=== PATIENT | male | born 1975 | race African-American/Black ===

== ENCOUNTER 2017-05-29 23:30 | Inpatient (IN) | payer OTHER ==
[2017-05-29 23:35] VITALS: BMI 27.3
--- NOTE | 2017-05-30 00:19 | PDOC ---
History of Present Illness - General Chief Complaint: Pain Stated Complaint: STOMACH PAIN Time Seen by Provider: 05/30/17 00:17 - History of Present Illness Initial Comments: 05/30/17 00:57 41 year old amle with no pmhx presented the ED today due to worsening nausea vomiting and abdominal pain, fever, chills and diffuse sweating . Symptoms started May 09 with N/V/D and was seen at urgent care and treated with Metronidazole , metoclopramide and protonix , but symptoms has not been imprvingand getting worse , he is scheduled for Endoscopy with on Wednesday but the abdominal pain prompt him to come to ED. The pain is med epigastric 10/15 , local non radiating , he reports constipation since a week, has vomitted today X5 non bilious non bloody. Denies any headache , blurry vision, chest pain , palpitations , sore throat, urinary symptom, but report all body ache. 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 CMP * Amylase , Lipase * Zofran for nausea once * IV fluids 125 CC /hr NS * Acetaminophen 800 mg Iv bp once Past History - Past Medical History Allergies/Adverse Reactions: Allergies Allergy/AdvReac Type Severity Reaction Status Date / Time No Known Allergies Allergy Verified 05/29/17 23:35 Home Medications: Ambulatory Orders NK [No Known Home Medication] 05/30/17 - Suicide/Smoking/Psychosocial Hx Smoking History: Never smoked Have you smoked in the past 12 months: No Information on smoking cessation initiated: No Hx Alcohol Use: No Drug/Substance Use Hx: No Substance Use Type: Alcohol *Physical Exam - Vital Signs Last Vital Signs Temp Pulse Resp BP Pulse Ox 98.2 F 90 16 126/99 100 05/29/17 23:32 05/29/17 23:32 05/29/17 23:32 05/29/17 23:32 05/29/17 23:32 ED Treatment Course - LABORATORY CBC & Chemistry Diagram: 06/02/17 06:40 06/02/17 06:40 *DC/Admit/Observation/Transfer Diagnosis at time of Disposition: Abdominal pain - Referrals - Patient Instructions - Post Discharge Activity
[2017-05-30] MEDS ORDERED: ACETAMINOPHEN 1000 MG/100 ML VIAL (NON FORMULARY) IVPB ONE (00:52)
[2017-05-30] MEDS ORDERED: ONDANSETRON 4 MG/2 ML VIAL IVPUSH ONE (00:53)
[2017-05-30] MEDS ORDERED: SODIUM CHLORIDE 1,000 ML IV SCH (01:00)
[2017-05-30] MEDS ORDERED: ONDANSETRON 4 MG/2 ML VIAL ONE ×2 (01:04→06:57)
[2017-05-30] MEDS ORDERED: ACETAMINOPHEN INJECTION 100 ML IVPB ONE (01:04)
[2017-05-30 01:51] LABS: BASO % 0.3 % (0-2.0); EOS % 0.1 % (0-4.5); HEMATOCRIT 51.1 % (35.4-49); HEMOGLOBIN 17.4 GM/dL (11.7-16.9); LYMPH % 17.4 % (8-40); MCH 30.4 pg (25.7-33.7); MCHC 34.1 g/dl (32.0-35.9); MEAN CELL VOLUME 89.1 fl (80-96); MEAN PLT VOLUME 8.5 fl (7.5-11.1); MONO % 6.4 % (3.8-10.2); NEUT % 75.8 % (42.8-82.8); PLATELET COUNT 284 K/MM3 (134-434); RBC 5.73 M/mm3 (4.00-5.60); RDW 13.1 % (11.9-15.9); WHITE BLOOD COUNT 6.8 K/mm3 (4.0-10.0)
--- NOTE | 2017-05-30 02:01 | PDOC ---
Attending Attestation - Resident Resident Name: Reid Sotelo - ED Attending Attestation I have performed the following: I have examined & evaluated the patient, The case was reviewed & discussed with the resident, I agree w/resident's findings & plan, Exceptions are as noted - HPI HPI: 05/30/17 02:00 The patient is a 41 year old male with no significant past medical history who presents to the ED complainining of several weeks of progressively worsening epigastric pain with nausea and vomiting. The patient states he was evaluated at an Urgent Care center for the same complaint a few weeks ago. He states he was treated with Metronidazole, Metoclopramide, and Protonix without improvement. Today, his epigastric pain became signficantly worse after taking the flagyl. He also reports associated chills and constipation. He reports multiple episodes of vomiting that are nonbloody and nonbilious. No chest pain or SOB. No sick contacts or recent travel. He is scheduled for endoscopy with Dr. Ryder (GI) on Wednesday. - Physicial Exam PE: 05/30/17 02:01 "GENERAL: Awake, alert, and fully oriented, in no acute distress HEAD: No signs of trauma EYES: PERRLA, EOMI, sclera anicteric, conjunctiva clear ENT: Auricles normal inspection, hearing grossly normal, nares patent, oropharynx clear without exudates. Moist mucosa NECK: Nontender, no stepoffs, Normal ROM, supple, no lymphadenopathy, JVD, or masses LUNGS: Breath sounds equal, clear to auscultation bilaterally. No wheezes, and no crackles HEART: Regular rate and rhythm, normal S1 and S2, no murmurs, rubs or gallops ABDOMEN: +epigastric TTP, No guarding, no rebound. No masses EXTREMITIES: Normal range of motion, no edema. No clubbing or cyanosis. No cords, erythema, or tenderness NEUROLOGICAL: Cranial nerves II through XII intact. 5/5 strength and sensation in all extremities, Normal speech, normal gait, normal cerebellar function SKIN: Warm, Dry, normal turgor, no rashes or lesions noted. " - Medical Decision Making 05/30/17 02:01 41 M with epigastric pain + N/V. Possible pancreatitis vs gastritis vs PUD. Less likely cholecystitis as pt with negative abel's. - Labs, lipase - IVF, GI cocktail - Reassess 05/30/17 04:56 Labs with mildly elevated lipase. Pt reassessed - continues to have inability to tolerate PO and refractory pain. Will obtain RUQ US Admit for further work up.
[2017-05-30] MEDS ORDERED: morphine CARPU-JECT 4 MG/1 ML DISP.SYRIN IVPUSH ONE (02:30)
[2017-05-30] MEDS ORDERED: morphine SULFATE 4 MG/ML VIAL ONE (02:34)
[2017-05-30] MEDS ORDERED: SODIUM CHLORIDE 1,000 ML IV STA ×2 (02:35→03:56)
[2017-05-30 03:20] LABS: URINE APPEARANCE CLEAR; URINE BILIRUBIN NEGATIVE (<2.0 mg/dL); URINE BLOOD NEGATIVE (NEGATIVE); URINE COLOR AMBER; URINE GLUCOSE (UA) NEGATIVE (NEGATIVE); URINE KETONE 2+ (NEGATIVE); URINE LEUK ESTERASE NEGATIVE (NEGATIVE); URINE NITRITE NEGATIVE (NEGATIVE)
[2017-05-30 03:36] LABS: URINE PROTEIN 1+ (NEGATIVE)
[2017-05-30 03:38] LABS: URINE HYALINE CAST 2 /lpf; URINE MUCUS MANY
[2017-05-30 03:50] LABS: BLOOD UREA NITROGEN 11 mg/dL (7-18); CREATININE 1.2 mg/dL (0.7-1.3); GLUCOSE,RANDOM 111 mg/dL (74-106)
[2017-05-30 03:54] LABS: POTASSIUM 4.3 mmol/L (3.5-5.1); SODIUM 137 mmol/L (136-145)
[2017-05-30 03:55] LABS: ANION GAP 9 (8-16); CALCIUM 9.7 mg/dL (8.5-10.1); CHLORIDE 100 mmol/L (98-107); CO2 28 mmol/L (21-32); LIPASE 422 U/L (73-393)
[2017-05-30 03:56] LABS: ALBUMIN 4.1 g/dl (3.4-5.0); BILIRUBIN,TOTAL 1.3 mg/dL (0.2-1.0); SGOT/AST 18 U/L (15-37); SGPT/ALT 18 U/L (12-78); TOT PROT 7.4 g/dl (6.4-8.2)
[2017-05-30 03:57] LABS: ALK PHOS 48 U/L (45-117)
[2017-05-30] MEDS ORDERED: MAG HYDROX/AL HYDROX/SIMETH 30 ML UNIT-DOSE CUP PO ONE (04:03)
[2017-05-30] MEDS ORDERED: FAMOTIDINE 20 MG/50 ML IVPB 20 MG/50 ML MG IVPB ONE ×3 (04:04→09:00)
[2017-05-30] MEDS ORDERED: MAG HYDROX/AL HYDROX/SIMETH 30 ML UNIT-DOSE CUP ONE (04:05)
[2017-05-30] MEDS ORDERED: ONDANSETRON 4 MG/2 ML VIAL IVPUSH PRN (06:01)
[2017-05-30] MEDS ORDERED: FAMOTIDINE IV 20 MG/12 ML VIAL IVPUSH SCH (06:05)
--- NOTE | 2017-05-30 06:08 | PN ---
Teaching Attending Note Name of Resident: Tim Cameoj ATTENDING PHYSICIAN STATEMENT I saw and evaluated the patient. I reviewed the resident's note and discussed the case with the resident. I agree with the resident's findings and plan as documented. SUBJECTIVE: This is a 41 year old male with no significant history who comes the ED complaining of epigastric pain associated with nausea, vomiting, early satiety, and weight loss. He has had symptoms for about 3 weeks. He denies hematemesis. His bowel movements have become less frequent but he denies melena and rectal bleeding. He does not smoke, denies NSAID use, history of gallstones , recent alcohol use. He has seen Dr. Ryder and an endoscopy was scheduled for 05/31. He got relief in the ED after morphine and Pepcid. OBJECTIVE: Vital Signs Period Temp Pulse Resp BP Sys/Park Pulse Ox Last 24 Hr 98.2 F 90 16 126/99 100 HEART: S1S2, RRR LUNGS: Clear ABDOMEN: Soft, non-distended, (+) epigastric tenderness, normal BS EXTREMITIES: No edema Laboratory Tests 05/30/17 05/30/17 05/30/17 01:33 01:33 02:19 WBC 6.8 RBC 5.73 H Hgb 17.4 H Hct 51.1 H MCV 89.1 MCH 30.4 MCHC 34.1 RDW 13.1 Plt Count 284 MPV 8.5 Neutrophils % 75.8 Lymphocytes % 17.4 Monocytes % 6.4 Eosinophils % 0.1 Basophils % 0.3 Sodium 137 Potassium 4.3 Chloride 100 Carbon Dioxide 28 Anion Gap 9 BUN 11 Creatinine 1.2 Creat Clearance w eGFR > 60 Random Glucose 111 H Calcium 9.7 Total Bilirubin 1.3 H AST 18 ALT 18 Alkaline Phosphatase 48 Total Protein 7.4 Albumin 4.1 Lipase 422 H Urine Color Nina Urine Appearance Clear Urine pH 6.0 Ur Specific [place] 1.035 Urine Protein 1+ H Urine Glucose (UA) Negative Urine Ketones 2+ H Urine Blood Negative Urine Nitrite Negative Urine Bilirubin Negative Urine Urobilinogen 2.0 Ur Leukocyte Esterase Negative Urine WBC (Auto) 1 Urine RBC (Auto) 2 Hyaline Casts 2 Urine Mucus Many Home Medications Medication Instructions Recorded NK [No Known Home Medication] 05/30/17 ASSESSMENT AND PLAN: This is a 41 year old male with no significant history who presented the ED with epigastric abdominal pain associated with nausea, vomiting, early satiety, and weight loss. 1. Epigastric abdominal pain - Lipase is 422 - doubt pancreatitis, presentation more consistent with PUD - Abdominal US ordered - Start IV Protonix - Morphine as needed for pain - Zofran as needed for nausea - IV fluid - GI consult for EGD
[2017-05-30] MEDS ORDERED: FAMOTIDINE 20 MG/50 ML IVPB 20 MG/50 ML MG IVPB SCH (06:30)
--- NOTE | 2017-05-30 07:06 | HP ---
CHIEF COMPLAINT: abdominal pain PCP: HISTORY OF PRESENT ILLNESS: The patient is a 41 yo m w/ no PMH who comes into the ED c/o a 1 month hx of epigastric pain with nausea and vomiting. The patient first began having epigastric discomfort around 3/4. He described it as a burning, nonradiating pain centered in the epigastrium. over the course of the month, the pain got progressively worse and became associated with nausea, vomiting, sweating, fevers and chills. The patient received Protonix, flagyl and reglan from an urgent care center. After he started taking these medications, his pain worsened and he was not able to keep any solid food down. When the pain got particularly worse during the past 2 days, he decided to come to the ED. Over this month, the patient endorses a 20 lb weight loss which he attributes to decreased appetite and increased pain while eating. He is scheduled for and EGD w/ Dr. Lima on Wednesday. Patient denies chest pain, shortness of breath. ER course was notable for: (1)Lipase 422 (2) (3) Recent Travel: none PAST MEDICAL HISTORY: none PAST SURGICAL HISTORY: none Social History: Smoking: denies Alcohol: denies Drugs: denies Family History: non-contributory Allergies No Known Allergies Allergy (Verified 05/29/17 23:35) HOME MEDICATIONS: Home Medications Medication Instructions Recorded NK [No Known Home Medication] 05/30/17 REVIEW OF SYSTEMS CONSTITUTIONAL: Absent: generalized weakness, malaise, loss of appetite, weight change HEENT: Absent: rhinorrhea, nasal congestion, throat pain, throat swelling, difficulty swallowing, mouth swelling, ear pain, eye pain, visual changes CARDIOVASCULAR: Absent: chest pain, syncope, palpitations, irregular heart rate, lightheadedness , peripheral edema RESPIRATORY: Absent: cough, shortness of breath, dyspnea with exertion, orthopnea, wheezing, stridor, hemoptysis GASTROINTESTINAL: Absent: melena, hematochezia GENITOURINARY: Absent: dysuria, frequency, urgency, hesitancy, hematuria, flank pain, genital pain MUSCULOSKELETAL: Absent: myalgia, arthralgia, joint swelling, back pain, neck pain SKIN: Absent: rash, itching, pallor HEMATOLOGIC/IMMUNOLOGIC: Absent: easy bleeding, easy bruising, lymphadenopathy, frequent infections ENDOCRINE: Absent: unexplained weight gain, unexplained weight loss, heat intolerance, cold intolerance NEUROLOGIC: Absent: headache, focal weakness or paresthesias, dizziness, unsteady gait, seizure, mental status changes, bladder or bowel incontinence PSYCHIATRIC: Absent: anxiety, depression, suicidal or homicidal ideation, hallucinations. PHYSICAL EXAMINATION Vital Signs - 24 hr 05/29/17 23:32 Temperature 98.2 F Pulse Rate 90 Respiratory 16 Rate Blood Pressure 126/99 O2 Sat by Pulse 100 Oximetry (%) GENERAL: Awake, alert, and fully oriented, in no acute distress. HEAD: Normal with no signs of trauma. NECK: Normal range of motion, supple without lymphadenopathy, JVD, or masses. LUNGS: Breath sounds equal, clear to auscultation bilaterally. No wheezes, and no crackles. No accessory muscle use. HEART: Regular rate and rhythm, normal S1 and S2 without murmur, rub or gallop. ABDOMEN: Soft, not distended, normoactive bowel sounds, no guarding, no rebound , no masses. There is tenderness to palpation in the epigastrium. The stomach is distended and can be palpated. LOWER EXTREMITIES: 2+ pulses, warm, well-perfused. No calf tenderness. No peripheral edema. NEUROLOGICAL: Cranial nerves II-X intact. Normal speech. Normal gait. PSYCHIATRIC: Cooperative. Good eye contact. Appropriate mood and affect. SKIN: Warm, dry, normal turgor, no rashes or lesions noted, normal capillary refill. Laboratory Results - last 24 hr 05/30/17 05/30/17 05/30/17 01:33 01:33 02:19 WBC 6.8 RBC 5.73 H Hgb 17.4 H Hct 51.1 H MCV 89.1 MCH 30.4 MCHC 34.1 RDW 13.1 Plt Count 284 MPV 8.5 Neutrophils % 75.8 Lymphocytes % 17.4 Monocytes % 6.4 Eosinophils % 0.1 Basophils % 0.3 Sodium 137 Potassium 4.3 Chloride 100 Carbon Dioxide 28 Anion Gap 9 BUN 11 Creatinine 1.2 Creat Clearance w eGFR > 60 Random Glucose 111 H Calcium 9.7 Total Bilirubin 1.3 H AST 18 ALT 18 Alkaline Phosphatase 48 Total Protein 7.4 Albumin 4.1 Lipase 422 H Urine Color Nina Urine Appearance Clear Urine pH 6.0 Ur Specific [place] 1.035 Urine Protein 1+ H Urine Glucose (UA) Negative Urine Ketones 2+ H Urine Blood Negative Urine Nitrite Negative Urine Bilirubin Negative Urine Urobilinogen 2.0 Ur Leukocyte Esterase Negative Urine WBC (Auto) 1 Urine RBC (Auto) 2 Hyaline Casts 2 Urine Mucus Many ASSESSMENT/PLAN: The patient is a 41 yo m w/ no PMH who is being admitted for management of dyspepsia #Dyspepsia likely 2/2 PUD -Protonix 40 IV daily -Famotidine 20mg IV BID -NPO -GI consult w/ Dr. Lima -Pain control #FEN -no fluids indicated -lytes WNL -NPO #prophy -early ambulation #Dispo -admit for observation. Visit type - Emergency Visit Emergency Visit: Yes ED Registration Date: 05/30/17 Care time: The patient presented to the Emergency Department on the above date and was hospitalized for further evaluation of their emergent condition. - New Patient This patient is new to me today: Yes Date on this admission: 05/30/17 - Critical Care Critical Care patient: No Hospitalist Screening - Colonoscopy Questionnaire Colonoscopy Questionnaire: Colonoscopy Questionnaire - Patient: 50 - 75 years old and never had a screening colonoscopy: No History of colon or rectal polyps, or CA: Unknown History of IBD, Crohn's disease or UC: Unknown History of abdominal radiation therapy as a child: Unknown - Relative: 1 with colon or rectal CA, or polyps at age 60 or younger: Unknown Colon or rectal CA diagnosed at age 45 or younger: Unknown Multiple relatives with colon or rectal CA: Unknown - Outcome: Screening Result: Negative Screen
[2017-05-30] MEDS ORDERED: PANTOPRAZOLE SODIUM 40 MG VIAL ONE (09:00)
[2017-05-30] MEDS: PANTOPRAZOLE SODIUM 40 MG VIAL IVPUSH SCH (09:07)
[2017-05-30] MEDS ORDERED: oxyCODONE HCL 5 MG TABLET PO ONE ×2 (13:23→19:15)
--- NOTE | 2017-05-30 13:38 | PN ---
Progress Note (short form) - Note Progress Note: Subjective: conto thave pain in epigastric area. constant , burping, uncomfortable, no N/V now , but vomited every time he ate at home . pain was intermittend x 3 weeks , but or past 4 days it became constant . pain in provoked by food intake. feels full with early satiety Objective: Vital Signs: Last Vital Signs Temp Pulse Resp BP Pulse Ox 98 F 79 18 145/77 100 05/30/17 13:05 05/30/17 13:05 05/30/17 13:05 05/30/17 13:05 05/30/17 13:05 Laboratory Results - last 24 hr 05/30/17 05/30/17 05/30/17 01:33 01:33 02:19 WBC 6.8 RBC 5.73 H Hgb 17.4 H Hct 51.1 H MCV 89.1 MCH 30.4 MCHC 34.1 RDW 13.1 Plt Count 284 MPV 8.5 Neutrophils % 75.8 Lymphocytes % 17.4 Monocytes % 6.4 Eosinophils % 0.1 Basophils % 0.3 Sodium 137 Potassium 4.3 Chloride 100 Carbon Dioxide 28 Anion Gap 9 BUN 11 Creatinine 1.2 Creat Clearance w eGFR > 60 Random Glucose 111 H Calcium 9.7 Total Bilirubin 1.3 H AST 18 ALT 18 Alkaline Phosphatase 48 Total Protein 7.4 Albumin 4.1 Lipase 422 H Urine Color Nina Urine Appearance Clear Urine pH 6.0 Ur Specific [place] 1.035 Urine Protein 1+ H Urine Glucose (UA) Negative Urine Ketones 2+ H Urine Blood Negative Urine Nitrite Negative Urine Bilirubin Negative Urine Urobilinogen 2.0 Ur Leukocyte Esterase Negative Urine WBC (Auto) 1 Urine RBC (Auto) 2 Hyaline Casts 2 Urine Mucus Many Physical Exam: NAD MMM, no facial droop. CV: RRR, no MRG Lungs: CTAB Abd: soft, No TTP in epigastric area , tenderness in RLQ with no rebound tenderness or guarding. nl BS . ND . Ext : no edema Assessment/Plan: 41 y/o man who presented with 1 month h/o of epigastric pain, which became constant x 3 dayas prior to presentation . 1- Epigastric pain, description of pain location, triggered by food intake, fullness, early satiety, and abd exam , indicates the possibility of peptic ulcer or gastritis clinically he does not have acute pancreatitis although his lipase is a little elevated. - give protonix BID - seems to be heme concentrated , will cont IVF - give carafate QID - avoid NSAIDS - one time dose of oxycodone - GI consult for EGD. - check HP stool AG - if EGD neg, will check CT of abd /p - repeat CBC 2- Elevated bili. unclear etiology. US nL . will repeat HLOC due to volume depletion, need for IVF and pain control and possible need for EGD Visit type - Emergency Visit Emergency Visit: Yes ED Registration Date: 05/30/17 Care time: The patient presented to the Emergency Department on the above date and was hospitalized for further evaluation of their emergent condition. - New Patient This patient is new to me today: Yes Date on this admission: 05/30/17 - Critical Care Critical Care patient: No
[2017-05-30] MEDS ORDERED: oxyCODONE HCL 5 MG TABLET ONE (14:00)
[2017-05-30] MEDS: SODIUM CHLORIDE 1,000 ML IV SCH (14:01)
[2017-05-30] MEDS: SUCRALFATE 1 GM/10 ML UNIT DOSE CUPS PO SCH ×3 (14:30→22:07)
[2017-05-30 15:19] LABS: HEMOGLOBIN 14.2 GM/dL (11.7-16.9); MCH 30.2 pg (25.7-33.7); MCHC 33.9 g/dl (32.0-35.9); MEAN CELL VOLUME 89.1 fl (80-96); MEAN PLT VOLUME 8.4 fl (7.5-11.1); PLATELET COUNT 242 K/MM3 (134-434); RBC 4.71 M/mm3 (4.00-5.60); WHITE BLOOD COUNT 6.2 K/mm3 (4.0-10.0)
[2017-05-30 15:33] LABS: ALBUMIN 3.6 g/dl (3.4-5.0); BILIRUBIN,DIRECT 0.3 mg/dL (0.0-0.2); BILIRUBIN,TOTAL 1.1 mg/dL (0.2-1.0); TOT PROT 6.4 g/dl (6.4-8.2)
[2017-05-30] MEDS ORDERED: traMADol HCL 50 MG TABLET PO ONE (19:30)
[2017-05-30] MEDS ORDERED: morphine SULFATE 4 MG/ML VIAL IVPUSH ONE (19:54)
--- NOTE | 2017-05-30 21:30 | EKG ---
Test Reason : Blood Pressure : / mmHG Vent. Rate : 073 BPM Atrial Rate : 073 BPM P-R Int : 168 ms QRS Dur : 086 ms QT Int : 378 ms P-R-T Axes : 057 090 049 degrees QTc Int : 416 ms NORMAL SINUS RHYTHM RIGHTWARD AXIS BORDERLINE ECG NO PREVIOUS ECGS AVAILABLE Confirmed by DENNY MAYES MD ([id number]) on 05/30/2017 9:30:03 PM Referred By: Confirmed By:DENNY MAYES MD
[2017-05-31] MEDS ORDERED: morphine SULFATE 4 MG/ML VIAL IVPUSH ONE ×2 (00:48→01:15)
[2017-05-31] MEDS: SODIUM CHLORIDE 1,000 ML IV SCH ×3 (01:21→13:48)
[2017-05-31] MEDS ORDERED: ACETAMINOPHEN 1000 MG/100 ML VIAL (NON FORMULARY) IVPB ONE ×2 (04:18→14:45)
[2017-05-31 08:00] LABS: HEMATOCRIT 41.9 % (35.4-49); HEMOGLOBIN 14.1 GM/dL (11.7-16.9); MCH 29.8 pg (25.7-33.7); MCHC 33.6 g/dl (32.0-35.9); MEAN CELL VOLUME 88.6 fl (80-96); MEAN PLT VOLUME 8.1 fl (7.5-11.1); PLATELET COUNT 238 K/MM3 (134-434); RBC 4.73 M/mm3 (4.00-5.60); RDW 12.8 % (11.9-15.9); WHITE BLOOD COUNT 7.8 K/mm3 (4.0-10.0)
[2017-05-31 08:15] LABS: ALBUMIN 3.3 g/dl (3.4-5.0); ALK PHOS 35 U/L (45-117); ANION GAP 11 (8-16); BILIRUBIN,DIRECT 0.3 mg/dL (0.0-0.2); BILIRUBIN,TOTAL 1.1 mg/dL (0.2-1.0); BLOOD UREA NITROGEN 11 mg/dL (7-18); CALCIUM 8.3 mg/dL (8.5-10.1); CHLORIDE 105 mmol/L (98-107); CO2 23 mmol/L (21-32); GLUCOSE,RANDOM 102 mg/dL (74-106); POTASSIUM 4.1 mmol/L (3.5-5.1); SGOT/AST 12 U/L (15-37); SGPT/ALT 17 U/L (12-78); SODIUM 139 mmol/L (136-145); TOT PROT 5.7 g/dl (6.4-8.2)
[2017-05-31] MEDS: SUCRALFATE 1 GM/10 ML UNIT DOSE CUPS PO SCH ×2 (08:26→11:09)
[2017-05-31] MEDS: PANTOPRAZOLE SODIUM 40 MG VIAL IVPUSH SCH (11:08)
--- NOTE | 2017-05-31 11:50 | CONSULT ---
- Consultation REQUESTING PROVIDER: Delvis LOPEZ CONSULT REQUEST: We have been asked to surgically evaluate this patient for abdominal pain PCP:Landon Edmondson HISTORY OF PRESENT ILLNESS:41 y/o A/A/male w/unexplained crampy abdominal pain w / nausea and vomiing since 05/09/17; he has had # evaluations at [facility] and w/ GI w/o an explanation for his abdominal pain; he was to have EGD today h/e came to the ER b/o nausea and vomiting and abdominal pain; w/u was done; he has early satiety and bloating w/ scant bowel movements and passage of flatus; NOC; no GI/ c/o o/w. PMHx: none PSHx: none Home Medications Medication Instructions Recorded NK [No Known Home Medication] 05/30/17 Allergies Allergy/AdvReac Type Severity Reaction Status Date / Time No Known Allergies Allergy Verified 05/29/17 23:35 REVIEW OF SYSTEMS: CONSTITUTIONAL: Absent: fever, chills, diaphoresis, generalized weakness, malaise, loss of appetite, weight change CARDIOVASCULAR: Absent: chest pain, syncope, palpitations, irregular heart rate, lightheadedness , peripheral edema RESPIRATORY: Absent: cough, shortness of breath, dyspnea with exertion, wheezing, stridor, hemoptysis GASTROINTESTINAL: Absent: abdominal pain, abdominal distension, nausea, vomiting, diarrhea, constipation, melena, hematochezia GENITOURINARY: Absent: dysuria, frequency, urgency, hesitancy, hematuria, flank pain, genital pain MUSCULOSKELETAL: Absent: myalgia, arthralgia, joint swelling, back pain, neck pain SKIN: Absent: rash, itching, pallor HEMATOLOGIC/IMMUNOLOGIC: Absent: easy bleeding, easy bruising, lymphadenopathy NEUROLOGIC: Absent: headache, focal weakness, paresthesias, dizziness, unsteady gait, seizure, mental status changes, bladder or bowel incontinence PSYCHIATRIC: Absent: anxiety, depression, suicidal or homicidal ideation, hallucinations. PHYSICAL EXAM: GENERAL: Awake, alert, and fully oriented, in no acute distress. HEAD: Normal with no signs of trauma. EYES: PERRL, sclera anicteric, conjunctiva clear. NECK: Normal ROM, supple without lymphadenopathy, JVD, or masses. ABDOMEN: Soft, nontender, slightly distended, normoactive bowel sounds, no guarding, no rebound, no masses. No organomegaly. No scars; no hernias. MUSCULOSKELETAL: Normal ROM at all joints. No bony deformities or tenderness. No CVA tenderness. UPPER EXTREMITIES: 2+ pulses, warm, well-perfused. No cyanosis. Cap refill <2 seconds. No peripheral edema. LOWER EXTREMITIES: 2+ pulses, warm, well-perfused. No calf tenderness. No peripheral edema. NEUROLOGICAL: Normal speech, gait not observed. PSYCH: Cooperative. Good eye contact. Appropriate mood and affect. SKIN: Warm, dry, normal turgor, no rashes or lesions noted. Vital Signs Temperature 98.9 F 05/31/17 05:35 Pulse Rate 78 05/31/17 05:35 Respiratory Rate 21 05/31/17 05:35 Blood Pressure 140/90 05/31/17 05:35 O2 Sat by Pulse Oximetry (%) 99 05/30/17 22:00 Lab Results WBC 7.8 K/mm3 (4.0-10.0) 05/31/17 06:50 RBC 4.73 M/mm3 (4.00-5.60) 05/31/17 06:50 Hgb 14.1 GM/dL (11.7-16.9) 05/31/17 06:50 Hct 41.9 % (35.4-49) 05/31/17 06:50 MCV 88.6 fl (80-96) 05/31/17 06:50 MCHC 33.6 g/dl (32.0-35.9) 05/31/17 06:50 RDW 12.8 % (11.9-15.9) 05/31/17 06:50 Plt Count 238 K/MM3 (134-434) 05/31/17 06:50 Sodium 139 mmol/L (136-145) 05/31/17 06:50 Potassium 4.1 mmol/L (3.5-5.1) 05/31/17 06:50 Chloride 105 mmol/L (98-107) 05/31/17 06:50 Carbon Dioxide 23 mmol/L (21-32) 05/31/17 06:50 Anion Gap 11 (8-16) 05/31/17 06:50 BUN 11 mg/dL (7-18) 05/31/17 06:50 Creatinine 1.0 mg/dL (0.7-1.3) 05/31/17 06:50 Random Glucose 102 mg/dL (74-106) 05/31/17 06:50 Calcium 8.3 mg/dL (8.5-10.1) L 05/31/17 06:50 CT scan a/p reviewed and d/w Dr. Jeramy Justice and Imaging [facility] report reviewed as well. IMP: SBO due to probable intussusception in a virgin abdomen. PLAN: D/E patient need for ex-lap and possible small bowel resection; r/b/t/a/' s to surgery d/w him and informed consent obtained. Samy Long MD FACS Visit type - Case Type Case Type: ED Admission - Emergency Emergency Visit: Yes ED Registration Date: 05/30/17 Care time: The patient presented to the Emergency Department on the above date and was hospitalized for further evaluation of their emergent condition. - New patient This patient is new to me today: Yes Date on this admission: 05/31/17 - Critical Care Critical Care patient: No
[2017-05-31 12:16] LABS: INR 1.27 (0.82-1.09); PROTHROMBIN TIME (PATIENT) 14.3 SEC (9.98-11.88)
--- NOTE | 2017-05-31 12:46 | PN ---
Teaching Attending Note Name of Resident: Tim Camejo ATTENDING PHYSICIAN STATEMENT I saw and evaluated the patient. I reviewed the resident's note and discussed the case with the resident. I agree with the resident's findings and plan as documented. SUBJECTIVE: No fever or chills. Abd pain is better today. OBJECTIVE: NAD MMM, no facial droop. CV: RRR, no MRG Lungs: CTAB Abd: soft,tender in LLQ and suprapubic area. no rebound tenderness or guarding. nl BS . ND . Ext : no edema Assessment/Plan: 41 y/o man who presented with 1 month h/o of epigastric pain, which became constant x 3 dayas prior to presentation . 1- ABd pain: due to SBO and possible intussusception. ? small bowel mass. possible ischemia given elevated lactate - appreciate surgical help. for exploration and possible Small bowel resection - cont IVF - pain mgt with IV agents after sx - d/w with pt possibility of mass/lymphoma as a cause. - dc carafate . 2- volume depletion : cont IVF. HLOC
[2017-05-31] MEDS ORDERED: ACETAMINOPHEN 1000 MG/100 ML VIAL (NON FORMULARY) IVPB PRN (14:00)
[2017-05-31] MEDS ORDERED: morphine SULFATE 4 MG/ML VIAL IVPUSH PRN (14:13)
--- NOTE | 2017-05-31 15:44 | CON.GI ---
Consult Consult Specialty:: GI Reason for Consultation:: Abdominal pain N/V - History of Present Illness History of Present Illness: patient consulted just prior surgery was seen in our office on 05/21/2017 for epigastric pain associated with nausea, vomiting, early satiety and 8lbs weight loss, suspected underlined bacterial overgrowth 2/2 abdominal cramping, was scheduled for EGD for further evaluation to R/O PUD, but he was presented to Ed with progressively worsening abdominal pain, N/V, abdomen/Pelvis CTA revealed SBO and patient pending surgery. - History Source History Provided By: Patient, Medical Record - Alcohol/Substance Use Hx Alcohol Use: No - Smoking History Smoking history: Never smoked Have you smoked in the past 12 months: No Home Medications - Allergies Allergies/Adverse Reactions: Allergies Allergy/AdvReac Type Severity Reaction Status Date / Time No Known Allergies Allergy Verified 05/29/17 23:35 - Home Medications Home Medications: Ambulatory Orders NK [No Known Home Medication] 05/30/17 Physical Exam-GI Vital Signs: Vital Signs Temperature 98.5 F 05/31/17 14:58 Pulse Rate 71 05/31/17 14:58 Respiratory Rate 20 05/31/17 14:58 Blood Pressure 122/65 05/31/17 14:58 O2 Sat by Pulse Oximetry (%) 99 05/31/17 08:00 Constitutional: Yes: Well Nourished, No Distress, Calm Eyes: Yes: Conjunctiva Clear HENT: Yes: Atraumatic Cardiovascular: Yes: Regular Rate and Rhythm Respiratory: Yes: Regular, CTA Bilaterally ...Palpate: Yes: Soft, Tenderness, Tenderness, Epigastium (mild). No: Firm/ Rigid, Guarding, Tenderness, Rebound Labs: CBC, BMP 05/31/17 06:50 05/31/17 06:50 INR, PTT INR 1.27 (0.82-1.09) H 05/31/17 11:43 Problem List - Problems (1) Small bowel intussusception Assessment/Plan: SBO Recommendation: >will follow up post operatively Code(s): K56.1 - INTUSSUSCEPTION
[2017-05-31] MEDS ORDERED: MIDAZOLAM HCL 2 MG/2 ML SINGLE DOSE VIAL ONE (16:00)
[2017-05-31] MEDS ORDERED: DEXAMETHASONE SOD PHOSPHATE 4 MG/1 ML VIAL ONE (16:02)
[2017-05-31] MEDS ORDERED: LIDOCAINE HCL/PF 2% SDV 5ML VIAL ONE (16:02)
[2017-05-31] MEDS ORDERED: fentaNYL CITRATE 250 MCG/5 ML VIAL ONE ×2 (16:19→16:39)
[2017-05-31] MEDS ORDERED: PROPOFOL 20 ML ONE ×2 (16:20→17:26)
[2017-05-31] MEDS ORDERED: ROCURONIUM BROMIDE 50 MG/5 ML VIAL ONE (16:21)
[2017-05-31] MEDS ORDERED: ERTAPENEM SODIUM 1 GM VIAL IVPB ONE (16:29)
[2017-05-31] MEDS ORDERED: ERTAPENEM SODIUM 1 GM VIAL ONE (16:29)
[2017-05-31] MEDS ORDERED: HYDROmorphone HCL CARPU-JECT 2 MG/1 ML DISP.SYRIN IVPUSH PRN (16:50)
[2017-05-31] MEDS ORDERED: PROMETHAZINE HCL 25 MG/1 ML VIAL IVPB PRN ×2 (16:51→18:32)
[2017-05-31] MEDS ORDERED: DEXAMETHASONE SOD PHOSPHATE 4 MG/1 ML VIAL IVPUSH PRN (16:51)
[2017-05-31] MEDS ORDERED: HYDROmorphone *PCA* 6MG/30ML DISP.SYRIN PCA SCH ×2 (17:00→18:32)
[2017-05-31] MEDS ORDERED: SODIUM CHLORIDE 1,000 ML IV SCH (18:02)
--- NOTE | 2017-05-31 18:03 | OP ---
Operative Note - Note: Operative Date: 05/31/17 Pre-Operative Diagnosis: small bowel obstruction/intussusception Operation: laparotomy; small bowel obstruction Findings: mid ileal intussusception Post-Operative Diagnosis: Same as Pre-op Surgeon: Samy Long Renal Technician: Itzel Machado Anesthesiologist/[employer]ING DEPARTMENT END FINDER: Cory Prasad Anesthesia: General Specimens Removed: small bowel Estimated Blood Loss (mls): 100
--- NOTE | 2017-05-31 18:07 | SURG ---
Surgery Warehouse Checker Note Warehouse Checker: Itzel Machado PA-C Date of Service: 05/31/17 Diagnosis: small bowel obstruction/intussusception Procedure: laparotomy; small bowel obstruction I was present for the entirety of the operative procedure. For further detail, please refer to operative report. Visit type - Case Type Case Type: ED Admission - Emergency Emergency Visit: Yes ED Registration Date: 05/30/17 Care time: The patient presented to the Emergency Department on the above date and was hospitalized for further evaluation of their emergent condition. - New patient This patient is new to me today: Yes Date on this admission: 05/31/17
[2017-05-31] MEDS ORDERED: HYDROmorphone *PCA* 6MG/30ML DISP.SYRIN PCA ONE (18:20)
[2017-05-31] MEDS ORDERED: ONDANSETRON 4 MG/2 ML VIAL IVPUSH PRN (18:32)
--- NOTE | 2017-05-31 20:17 | PN ---
Physical Exam: SUBJECTIVE: Patient seen and examined at bedside. Patient greatly improved compared to admission. No new complaints. No new episodes of vomiting. OBJECTIVE: Vital Signs Period Temp Pulse Resp BP Sys/Park Pulse Ox Last 24 Hr 98.0 F-98.9 F 69-89 12-21 120-161/65-100 99-100 GENERAL: The patient is awake, alert, and fully oriented, in no acute distress. NECK: Trachea midline, full range of motion, supple. LUNGS: Breath sounds equal, clear to auscultation bilaterally, no wheezes, no crackles, no accessory muscle use. HEART: Regular rate and rhythm, S1, S2 without murmur, rub or gallop. ABDOMEN: Soft, nontender, mildly distended, normoactive bowel sounds, no guarding, no rebound, no hepatosplenomegaly, no masses. EXTREMITIES: 2+ pulses, warm, well-perfused, no edema. NEUROLOGICAL: Cranial nerves II through X grossly intact. Normal speech, gait not observed. SKIN: Warm, dry, normal turgor, no rashes or lesions noted Laboratory Results - last 24 hr 05/30/17 05/31/17 05/31/17 19:00 06:50 06:50 WBC 7.8 RBC 4.73 Hgb 14.1 Hct 41.9 MCV 88.6 MCH 29.8 MCHC 33.6 RDW 12.8 Plt Count 238 MPV 8.1 PT with INR INR Sodium 139 Potassium 4.1 Chloride 105 Carbon Dioxide 23 Anion Gap 11 BUN 11 Creatinine 1.0 Random Glucose 102 Lactic Acid 1.3 Calcium 8.3 L Total Bilirubin 1.1 H Direct Bilirubin 0.3 H AST 12 L ALT 17 Alkaline Phosphatase 35 L Total Protein 5.7 L Albumin 3.3 L Blood Type Antibody Screen 05/31/17 05/31/17 05/31/17 07:05 11:30 11:43 WBC RBC Hgb Hct MCV MCH MCHC RDW Plt Count MPV PT with INR 14.30 H INR 1.27 H Sodium Potassium Chloride Carbon Dioxide Anion Gap BUN Creatinine Random Glucose Lactic Acid Calcium Total Bilirubin Direct Bilirubin AST ALT Alkaline Phosphatase Total Protein Albumin Blood Type O POSITIVE O POSITIVE Antibody Screen Negative Active Medications Generic Name Dose Route Start Last Admin Trade Name Freq PRN Reason Stop Dose Admin Acetaminophen 1,000 mg 05/31/17 23:00 Ofirmev Injection - IVPB Q8H PRN PAIN LEVEL 1-5 Heparin Sodium (Porcine) 5,000 unit 05/31/17 22:00 Heparin - SQ TID DARRIN Hydromorphone HCl 0 mg 05/31/17 18:32 Dilaudid Assistant Scientist - RECRUITMENT ADVERTISING MANAGER 06/07/17 16:52 RECRUITMENT ADVERTISING MANAGER DARRIN Protocol Sodium Chloride 1,000 mls @ 125 mls/hr 05/31/17 18:02 Normal Saline - IV ASDIR DARRIN Ondansetron HCl 4 mg 05/31/17 18:32 Zofran Injection IVPUSH Q6H PRN NAUSEA Pantoprazole Sodium 40 mg 06/01/17 10:00 Protonix Iv IVPUSH DAILY DARRIN Promethazine HCl 12.5 mg 05/31/17 18:32 Phenergan Injection - IVPB Q6H PRN NAUSEA AND/OR VOMITING ASSESSMENT/PLAN: The patient is a 41 yo m w/ no PMH who is being admitted for management of dyspepsia #Small bowel obstruction 2/2 intususception -CTA reveals SBO 2/2 intucusception -Surgery consulted; patient for surgery today -NS @ 125 -NPO -phenergan PRN nausea -Pain control -dilaudid RECRUITMENT ADVERTISING MANAGER -IV tylenol #FEN -no fluids indicated -lytes WNL -NPO #prophy -Heparin 5ku TID #Dispo -admit to med-surg. Visit type - Emergency Visit Emergency Visit: Yes ED Registration Date: 05/30/17 Care time: The patient presented to the Emergency Department on the above date and was hospitalized for further evaluation of their emergent condition. - New Patient This patient is new to me today: No - Critical Care Critical Care patient: No
[2017-05-31] MEDS: HEPARIN NA (PORCINE) 5,000 UNITS/ML 1ML VIAL SQ SCH ×2 (22:21→22:52)
[2017-05-31] MEDS: ACETAMINOPHEN 1000 MG/100 ML VIAL (NON FORMULARY) IVPB PRN (22:48)
[2017-06-01] MEDS: HEPARIN NA (PORCINE) 5,000 UNITS/ML 1ML VIAL SQ SCH ×3 (06:42→21:46)
[2017-06-01] MEDS: ACETAMINOPHEN 1000 MG/100 ML VIAL (NON FORMULARY) IVPB PRN (07:28)
[2017-06-01 08:03] LABS: BASO % 0.1 % (0-2.0); EOS % 0.1 % (0-4.5); HEMATOCRIT 42.6 % (35.4-49); HEMOGLOBIN 14.4 GM/dL (11.7-16.9); LYMPH % 15.6 % (8-40); MCH 30.3 pg (25.7-33.7); MEAN CELL VOLUME 89.3 fl (80-96); MEAN PLT VOLUME 8.1 fl (7.5-11.1); MONO % 8.2 % (3.8-10.2); PLATELET COUNT 218 K/MM3 (134-434); RBC 4.77 M/mm3 (4.00-5.60); RDW 13.1 % (11.9-15.9); WHITE BLOOD COUNT 9.4 K/mm3 (4.0-10.0)
[2017-06-01 08:07] LABS: INR 1.35 (0.82-1.09); PROTHROMBIN TIME (PATIENT) 15.2 SEC (9.98-11.88)
[2017-06-01 08:09] LABS: ACTIVATED PTT 30.3 SECONDS (26.9-34.4)
[2017-06-01 08:14] LABS: ALBUMIN 2.9 g/dl (3.4-5.0); ANION GAP 5 (8-16); BLOOD UREA NITROGEN 10 mg/dL (7-18); CALCIUM 8.1 mg/dL (8.5-10.1); CHLORIDE 104 mmol/L (98-107); CO2 28 mmol/L (21-32); GLUCOSE,RANDOM 89 mg/dL (74-106); POTASSIUM 3.9 mmol/L (3.5-5.1); SODIUM 137 mmol/L (136-145)
--- NOTE | 2017-06-01 08:14 | PN ---
Progress Note (short form) - Note Progress Note: Pt without nausea or emesis. No flatus or bowel function. Iv tylenol helping with pain. Vital Signs Period Temp Pulse Resp BP Sys/Park Pulse Ox Last 24 Hr 98.0 F-98.9 F 69-89 12-20 122-161/52-100 98-100 UOP-clear, yellow urine 550ml GEN: appears comfortable Abd: soft, inc tenderness, inc c/d/i with dressing. LE: no calf tendneress or swelling noted. A/P: 41 yo male s/p lapartomy for SB resection(intussesception) Continue Npo/IV hydration until flatus OOB and ambulate today huitron discontinued this am for TOV cbc/chem pending DVT ppx with ambulation/heparin SQ IV tylenol/toradol as needed D/w Dr. Long
[2017-06-01 08:18] LABS: ALK PHOS 35 U/L (45-117); BILIRUBIN,TOTAL 1.3 mg/dL (0.2-1.0); SGOT/AST 16 U/L (15-37); SGPT/ALT 18 U/L (12-78)
[2017-06-01] MEDS: PANTOPRAZOLE SODIUM 40 MG VIAL IVPUSH SCH (11:09)
[2017-06-01] MEDS: DEXTROSE 5%-0.45% SALINE 1,000 ML IV SCH ×2 (11:09→19:56)
--- NOTE | 2017-06-01 11:11 | OP ---
DATE OF OPERATION: 05/31/2017 PREOPERATIVE DIAGNOSIS: Small bowel obstruction secondary to presumed intussusception. POSTOPERATIVE DIAGNOSIS: Small bowel obstruction due to ileoileal intussusception. PROCEDURE: Laparotomy and small bowel resection. SURGEON: Samy Long MD TIER LIFT OPERATOR: Itzel Machado PA-C ANESTHESIA: General. OPERATIVE FINDINGS: There was mid ileoileal intussusception with a mass causing small bowel obstruction. The rest of the findings were unremarkable. DESCRIPTION OF PROCEDURE: The patient was placed on the operating table in supine position, and after the induction of general anesthesia, the patients abdomen was prepped with ChloraPrep and draped in sterile fashion. A time-out was taken, and a peritoneal cavity entered through a midline incision from slightly above to below the umbilicus. The previously noted findings were observed. Small bowel resection was carried out by dividing the bowel proximally and distally using the FELICITY stapling device. The mesentery was serially clamped, cut, and ligated, and the specimen passed off the operative field and sent for pathological examination. Side-to- side anastomosis was carried out using a FELICITY stapling device, and the resulting defect closed with a TA stapling device. The defect in the mesentery was closed with continuous 2-0 Vicryl suture. Hemostasis was checked for and noted to be good, and then, copious irrigation was carried out. The entire small bowel was run proximally and distally, and no other abnormalities were found, and the colon examined, as well, with no other abnormalities found. Hemostasis was again verified, and then, the incision was closed in a single layer using continuous 0 looped Maxon suture. The subcutaneous tissue was irrigated, and the skin edges reapproximated with surgical ninfa. Dry sterile dressings were placed, and the procedure terminated at this point, and the patient aroused from general anesthesia and transferred to the post-anesthesia care unit in stable condition awake and alert. ESTIMATED BLOOD LOSS: 100 mL. REPLACEMENTS: Crystalloid. DRAINS: None. SPECIMENS: Portion of small bowel to Pathology. I, Samy Long, was physically present in the operating room from the time the patient was placed on the operating table until he was transferred to the post-anesthesia care unit in my accompaniment. MD FADI Lima/[id number] MTDD
[2017-06-01] MEDS: KETOROLAC TROMETHAMINE 30 MG/1 ML VIAL IVPUSH PRN (11:14)
--- NOTE | 2017-06-01 15:21 | PN ---
Progress Note (short form) - Note Progress Note: Post op day#1.S/p Exploratory lapratomy with small bowel resection under GA unventful.Patient stable and has pain score of 2-3/10.So will Dc ibm bpm developer and put patient prn pain medication.No any anesthesia related problem.Patient Dc from the anesthesia care.
--- NOTE | 2017-06-01 17:49 | PN ---
Teaching Attending Note Name of Resident: Tim Camejo ATTENDING PHYSICIAN STATEMENT I saw and evaluated the patient. I reviewed the resident's note and discussed the case with the resident. I agree with the resident's findings and plan as documented. SUBJECTIVE: no fever or chills . Abd pain controlled. no flatus or BM since sx. OBJECTIVE: NAD MMM, no facial droop. CV: RRR, no MRG Lungs: CTAB Abd: soft,slightly more distended compared to yesterday. absent BS. surgical dressing on mid abd. TTP in all quadrants Ext : no edema Assessment/Plan: 41 y/o man who presented with 1 month h/o of epigastric pain, which became constant x 3 dayas prior to presentation . 1- ABd pain: due to SBO form intussusception. - s/p surgical exploration and small bowel resection 05/31 - doing well - will follow path report to r/o small bowel tumor . - change IVF to D51/2 NS and NPO 2- volume depletion : cont IVF. HLOC
--- NOTE | 2017-06-01 19:56 | PN ---
Physical Exam: SUBJECTIVE: Patient seen and examined at bedside. Patient alert, talkative, pain free. OBJECTIVE: Vital Signs Period Temp Pulse Resp BP Sys/Park Pulse Ox Last 24 Hr 98.0 F-99.9 F 69-87 16-20 124-150/52-86 98-100 GENERAL: The patient is awake, alert, and fully oriented, in no acute distress. NECK: Trachea midline, full range of motion, supple. LUNGS: Breath sounds equal, clear to auscultation bilaterally, no wheezes, no crackles, no accessory muscle use. HEART: Regular rate and rhythm, S1, S2 without murmur, rub or gallop. ABDOMEN: Soft, nondistended, hypoactive bowel sounds. Abdomen tender to palpation with guarding. Surgical bandage in place. EXTREMITIES: 2+ pulses, warm, well-perfused, no edema. NEUROLOGICAL: Cranial nerves II through X grossly intact. Normal speech, gait not observed. SKIN: Warm, dry, normal turgor, no rashes or lesions noted Laboratory Results - last 24 hr 06/01/17 06/01/17 06/01/17 07:28 07:28 07:28 WBC 9.4 RBC 4.77 Hgb 14.4 Hct 42.6 MCV 89.3 MCH 30.3 MCHC 34.0 RDW 13.1 Plt Count 218 MPV 8.1 Neutrophils % 76.0 Lymphocytes % 15.6 Monocytes % 8.2 Eosinophils % 0.1 Basophils % 0.1 PT with INR 15.20 H INR 1.35 H PTT (Actin FS) 30.3 Sodium 137 Potassium 3.9 Chloride 104 Carbon Dioxide 28 D Anion Gap 5 L BUN 10 Creatinine 1.0 Creat Clearance w eGFR > 60 Random Glucose 89 Calcium 8.1 L Phosphorus 3.0 Magnesium 2.0 Total Bilirubin 1.3 H AST 16 D ALT 18 Alkaline Phosphatase 35 L Total Protein 5.0 L Albumin 2.9 L Active Medications Generic Name Dose Route Start Last Admin Trade Name Freq PRN Reason Stop Dose Admin Acetaminophen 1,000 mg 05/31/17 23:00 06/01/17 07:28 Ofirmev Injection - IVPB 1,000 mg Q8H PRN Administration PAIN LEVEL 1-5 Heparin Sodium (Porcine) 5,000 unit 05/31/17 22:00 06/01/17 15:17 Heparin - SQ Not Given TID DARRIN Hydromorphone HCl 0 mg 05/31/17 18:32 05/31/17 18:55 Dilaudid Investigation Clerk - HIGH SCHOOL SPECIAL EDUCATION TEACHER 06/07/17 16:52 6 mg HIGH SCHOOL SPECIAL EDUCATION TEACHER DARRIN Administration Protocol Dextrose/Sodium Chloride 1,000 mls @ 125 mls/hr 06/01/17 11:00 06/01/17 11:09 D5-1/2ns - IV 125 mls/hr ASDIR DARRIN Administration Ketorolac Tromethamine 30 mg 06/01/17 08:20 06/01/17 11:14 Toradol Injection - IVPUSH 06/06/17 09:59 30 mg Q8H-IV PRN Administration PAIN LEVEL 1-5 Ondansetron HCl 4 mg 05/31/17 18:32 Zofran Injection IVPUSH Q6H PRN NAUSEA Pantoprazole Sodium 40 mg 06/01/17 10:00 06/01/17 11:09 Protonix Iv IVPUSH 40 mg DAILY DARRIN Administration Promethazine HCl 12.5 mg 05/31/17 18:32 Phenergan Injection - IVPB Q6H PRN NAUSEA AND/OR VOMITING ASSESSMENT/PLAN: The patient is a 41 yo m w/ no PMH who is being admitted for management of dyspepsia #POD 1 s/p ex lap w/ bowel resection 2/2 intususception -Patient w/ pain 2/10 without HIGH SCHOOL SPECIAL EDUCATION TEACHER use -NS @ 125 changed to D5 1/2 NS due to mild hypoglycemia on BMP -NPO until flatus -phenergan PRN nausea -Pain control -dilaudid HIGH SCHOOL SPECIAL EDUCATION TEACHER d/c -IV tylenol -IV toradol 30mg Q8H #FEN -D5 1/2 NS @ 100 -lytes WNL -NPO until flatus #prophy -Heparin 5ku TID #Dispo -admit to med-surg. Visit type - Emergency Visit Emergency Visit: Yes ED Registration Date: 05/30/17 Care time: The patient presented to the Emergency Department on the above date and was hospitalized for further evaluation of their emergent condition. - New Patient This patient is new to me today: No - Critical Care Critical Care patient: No
--- NOTE | 2017-06-01 20:23 | PN ---
GI Progress Note Subjective: patient s/p surgery denies abdominal pain, patient has an unusual presentation of having epigastric pain and endin up with a intussuception - Objective Vital Signs: Vital Signs Temperature 99.9 F H 06/01/17 18:05 Pulse Rate 84 06/01/17 18:05 Respiratory Rate 20 06/01/17 18:05 Blood Pressure 124/67 06/01/17 18:05 O2 Sat by Pulse Oximetry (%) 98 06/01/17 08:28 Constitutional: Well Nourished Eyes: Yes: Conjunctiva Clear HENT: Yes: Atraumatic Neck: Yes: Trachea Midline Cardiovascular: Yes: Regular Rate and Rhythm Respiratory: Yes: CTA Bilaterally ...Auscultate: Yes: Hypoactive Bowel Sounds ...Palpate: Yes: Soft. No: Firm/Rigid, Guarding, Hepatomegaly, Mass, Pulsatile Mass, Splenomegaly, Tenderness Labs: CBC, BMP 06/01/17 07:28 06/01/17 07:28 INR, PTT INR 1.35 (0.82-1.09) H 06/01/17 07:28 Problem List - Problems (1) Small bowel intussusception Assessment/Plan: s/p surgery R> Protonix 40mg IVPB for prophylaxis made aware to follow as an outpatient for further work-up please recall as necessary Code(s): K56.1 - INTUSSUSCEPTION
[2017-06-02] MEDS: ACETAMINOPHEN 1000 MG/100 ML VIAL (NON FORMULARY) IVPB PRN (02:21)
[2017-06-02] MEDS: DEXTROSE 5%-0.45% SALINE 1,000 ML IV SCH ×2 (03:30→19:59)
[2017-06-02] MEDS: HEPARIN NA (PORCINE) 5,000 UNITS/ML 1ML VIAL SQ SCH ×3 (06:04→21:38)
--- NOTE | 2017-06-02 06:32 | PN ---
<Tim Camejo - Last Filed: 06/02/17 16:05> Physical Exam: SUBJECTIVE: Patient seen and examined. Seen OOB to chair. Pain controlled. Has not yet passed flatus. No new complaints. OBJECTIVE: Vital Signs Period Temp Pulse Resp BP Sys/Park Pulse Ox Last 24 Hr 98.2 F-100.0 F 71-87 18-20 115-141/67-86 98-98 GENERAL: The patient is awake, alert, and fully oriented, in no acute distress. NECK: Trachea midline, full range of motion, supple. LUNGS: Breath sounds equal, clear to auscultation bilaterally, no wheezes, no crackles, no accessory muscle use. HEART: Regular rate and rhythm, S1, S2 without murmur, rub or gallop. ABDOMEN: Soft, nontender, nondistended, normoactive bowel sounds, no guarding, no rebound, no hepatosplenomegaly, no masses. Surgical bandage in place. EXTREMITIES: 2+ pulses, warm, well-perfused, no edema. NEUROLOGICAL: Cranial nerves II through X grossly intact. Normal speech, normal gait. SKIN: Warm, dry, normal turgor, no rashes or lesions noted Laboratory Results - last 24 hr 06/01/17 06/01/17 06/01/17 07:28 07:28 07:28 WBC 9.4 RBC 4.77 Hgb 14.4 Hct 42.6 MCV 89.3 MCH 30.3 MCHC 34.0 RDW 13.1 Plt Count 218 MPV 8.1 Neutrophils % 76.0 Lymphocytes % 15.6 Monocytes % 8.2 Eosinophils % 0.1 Basophils % 0.1 PT with INR 15.20 H INR 1.35 H PTT (Actin FS) 30.3 Sodium 137 Potassium 3.9 Chloride 104 Carbon Dioxide 28 D Anion Gap 5 L BUN 10 Creatinine 1.0 Creat Clearance w eGFR > 60 Random Glucose 89 Calcium 8.1 L Phosphorus 3.0 Magnesium 2.0 Total Bilirubin 1.3 H AST 16 D ALT 18 Alkaline Phosphatase 35 L Total Protein 5.0 L Albumin 2.9 L Active Medications Generic Name Dose Route Start Last Admin Trade Name Freq PRN Reason Stop Dose Admin Heparin Sodium (Porcine) 5,000 unit 05/31/17 22:00 06/02/17 06:04 Heparin - SQ Not Given TID DARRIN Hydromorphone HCl 0 mg 03/26/18 18:32 05/31/17 18:55 Dilaudid Program Admin - MUSIC WORKER 06/07/17 16:52 6 mg MUSIC WORKER DARRIN Administration Protocol Dextrose/Sodium Chloride 1,000 mls @ 125 mls/hr 06/01/17 11:00 06/02/17 03:30 D5-1/2ns - IV 125 mls/hr ASDIR DARRIN Administration Ketorolac Tromethamine 30 mg 06/01/17 08:20 06/01/17 11:14 Toradol Injection - IVPUSH 06/06/17 09:59 30 mg Q8H-IV PRN Administration PAIN LEVEL 1-5 Ondansetron HCl 4 mg 05/31/17 18:32 Zofran Injection IVPUSH Q6H PRN NAUSEA Pantoprazole Sodium 40 mg 06/01/17 10:00 06/01/17 11:09 Protonix Iv IVPUSH 40 mg DAILY DARRIN Administration Promethazine HCl 12.5 mg 05/31/17 18:32 Phenergan Injection - IVPB Q6H PRN NAUSEA AND/OR VOMITING ASSESSMENT/PLAN: The patient is a 41 yo m w/ no PMH who is being admitted for management of dyspepsia #POD 1 s/p ex lap w/ bowel resection 2/2 intususception -Pt OOB and ambulating -NPO until flatus; can have ice chips as per surgery -phenergan PRN nausea -Pain control -dilaudid MUSIC WORKER d/c -IV toradol 30mg Q8H -morphine 4mg PRN #FEN -D5 1/2 NS @ 100 -hypokalemia, repleted -NPO until flatus #prophy -Heparin 5ku TID #Dispo -admit to med-surg. Visit type - Emergency Visit Emergency Visit: Yes ED Registration Date: 05/30/17 Care time: The patient presented to the Emergency Department on the above date and was hospitalized for further evaluation of their emergent condition. - New Patient This patient is new to me today: No - Critical Care Critical Care patient: No <Armida Yeh - Last Filed: 06/02/17 19:29> Physical Exam: Patient seen and examined. Agree with the resident's note. No flatus yet, NPO for now. Vital Signs Temperature 100.3 F H 06/02/17 17:45 Pulse Rate 100 H 06/02/17 17:45 Respiratory Rate 18 06/02/17 17:45 Blood Pressure 127/78 06/02/17 17:45 O2 Sat by Pulse Oximetry (%) 98 06/01/17 20:27 CBCD WBC 7.3 K/mm3 (4.0-10.0) 06/02/17 06:40 RBC 4.62 M/mm3 (4.00-5.60) 06/02/17 06:40 Hgb 13.9 GM/dL (11.7-16.9) 06/02/17 06:40 Hct 40.8 % (35.4-49) 06/02/17 06:40 MCV 88.3 fl (80-96) 06/02/17 06:40 MCHC 34.2 g/dl (32.0-35.9) 06/02/17 06:40 RDW 13.0 % (11.9-15.9) 06/02/17 06:40 Plt Count 223 K/MM3 (134-434) 06/02/17 06:40 MPV 8.2 fl (7.5-11.1) 06/02/17 06:40 CMP Sodium 139 mmol/L (136-145) 06/02/17 06:40 Potassium 3.4 mmol/L (3.5-5.1) L 06/02/17 06:40 Chloride 102 mmol/L (98-107) 06/02/17 06:40 Carbon Dioxide 25 mmol/L (21-32) 06/02/17 06:40 Anion Gap 12 (8-16) 06/02/17 06:40 BUN 6 mg/dL (7-18) L D 06/02/17 06:40 Creatinine 0.9 mg/dL (0.7-1.3) 06/02/17 06:40 Creat Clearance w eGFR > 60 (>60) 06/01/17 07:28 Random Glucose 111 mg/dL (74-106) H D 06/02/17 06:40 Calcium 8.0 mg/dL (8.5-10.1) L 06/02/17 06:40 Total Bilirubin 1.3 mg/dL (0.2-1.0) H 06/01/17 07:28 AST 16 U/L (15-37) D 06/01/17 07:28 ALT 18 U/L (12-78) 06/01/17 07:28 Alkaline Phosphatase 35 U/L (45-117) L 06/01/17 07:28 Total Protein 5.0 g/dl (6.4-8.2) L 06/01/17 07:28 Albumin 2.9 g/dl (3.4-5.0) L 06/01/17 07:28 Current Medications Generic Name Dose Route Start Last Admin Trade Name Freq PRN Reason Stop Dose Admin Heparin Sodium (Porcine) 5,000 unit 05/31/17 22:00 06/02/17 14:21 Heparin - SQ Not Given TID DARRIN Dextrose/Sodium Chloride 1,000 mls @ 125 mls/hr 06/01/17 11:00 06/02/17 03:30 D5-1/2ns - IV 125 mls/hr ASDIR DARRIN Administration Ketorolac Tromethamine 30 mg 06/01/17 08:20 06/01/17 11:14 Toradol Injection - IVPUSH 06/06/17 09:59 30 mg Q8H-IV PRN Administration PAIN LEVEL 1-5 Morphine Sulfate 4 mg 06/02/17 10:24 Morphine Sulfate IVPB Q4H PRN PAIN LEVEL 6-10 Ondansetron HCl 4 mg 05/31/17 18:32 Zofran Injection IVPUSH Q6H PRN NAUSEA Pantoprazole Sodium 40 mg 06/01/17 10:00 06/02/17 11:06 Protonix Iv IVPUSH 40 mg DAILY DARRIN Administration Promethazine HCl 12.5 mg 05/31/17 18:32 Phenergan Injection - IVPB Q6H PRN NAUSEA AND/OR VOMITING Home Medications Medication Instructions Recorded NK [No Known Home Medication] 05/30/17 POd#2 for due to SBO form intussusception.
[2017-06-02 07:52] LABS: BASO % 0.2 % (0-2.0); EOS % 0.3 % (0-4.5); HEMATOCRIT 40.8 % (35.4-49); HEMOGLOBIN 13.9 GM/dL (11.7-16.9); LYMPH % 16.1 % (8-40); MCH 30.2 pg (25.7-33.7); MCHC 34.2 g/dl (32.0-35.9); MEAN CELL VOLUME 88.3 fl (80-96); MEAN PLT VOLUME 8.2 fl (7.5-11.1); MONO % 9.7 % (3.8-10.2); NEUT % 73.7 % (42.8-82.8); PLATELET COUNT 223 K/MM3 (134-434); RBC 4.62 M/mm3 (4.00-5.60); WHITE BLOOD COUNT 7.3 K/mm3 (4.0-10.0)
[2017-06-02 08:27] LABS: ANION GAP 12 (8-16); BLOOD UREA NITROGEN 6 mg/dL (7-18); CHLORIDE 102 mmol/L (98-107); CO2 25 mmol/L (21-32); CREATININE 0.9 mg/dL (0.7-1.3); GLUCOSE,RANDOM 111 mg/dL (74-106); POTASSIUM 3.4 mmol/L (3.5-5.1); SODIUM 139 mmol/L (136-145)
--- NOTE | 2017-06-02 10:20 | PN ---
Progress Note (short form) - Note Progress Note: surgery POD #2 X-lap with with small bowel resection seen and examined at bedside with no complaints. Patient states pain is controlled and he is not using his COPPER MINER BLASTING. He has been oob/ ambulating without assistance and voiding. He has not had a BM yet and he denies any fever, chills, N/V, CP, SOB. Vital Signs Temp 99.0 F 06/02/17 05:38 Pulse 80 06/02/17 05:38 Resp 19 06/02/17 05:38 BP 115/68 06/02/17 05:38 Pulse Ox 98 06/01/17 20:27 Intake & Output 06/01/17 06/01/17 06/02/17 11:59 23:59 11:59 Intake Total 1100 1510 1500 Output Total 1050 300 850 Balance 50 1210 650 Intake: IV 1000 1310 1500 D5-1/2Ns - 1,000 ml @ 138 674 5366 mls/hr IV ASDIR DARRIN Rx#: [id number] Normal Saline - 1,000 ml 1000 435 @ 125 mls/hr IV ASDIR DARRIN Rx#:[id number] IVPB 100 200 Output: Urine 1050 300 850 Arevalo 750 850 Void 300 300 Other: Voiding Method Urinal Urinal Bowel Movement No CBC, BMP 06/02/17 06:40 06/02/17 06:40 PE: A&O x 3, NAD unlabored resp on RA abdomen, soft, ND and diffuse incisional tenderness, Shanae insitu, surrounding tissue intact with no evidence of tracking erythema, edema or collection, no d/c. Problem List - Problems (1) Small bowel obstruction Assessment/Plan: s/p Small bowel and mass resection doing well with pain controlled Plan: 1) D/c COPPER MINER BLASTING, start morphine 2) OOB as tolerated 3) Contine dvt Prophylaxis with b/l scds and SQ heparin 4) continue NPO, may start ice chips only Evaluation and plan discussed with Dr Long. Code(s): K56.609 - UNSP INTESTNL OBST, UNSP TO PARTIAL VERSUS COMPLETE OBST
[2017-06-02] MEDS ORDERED: morphine SULFATE 4 MG/ML VIAL IVPB PRN (10:24)
[2017-06-02] MEDS: PANTOPRAZOLE SODIUM 40 MG VIAL IVPUSH SCH (11:06)
[2017-06-02] MEDS ORDERED: POTASSIUM CHLORIDE TABS 20 MEQ TABLET.ER (FP) PO ONE (16:07)
[2017-06-03] MEDS: KETOROLAC TROMETHAMINE 30 MG/1 ML VIAL IVPUSH PRN (01:02)
[2017-06-03] MEDS: DEXTROSE 5%-0.45% SALINE 1,000 ML IV SCH ×3 (03:58→20:16)
[2017-06-03] MEDS: HEPARIN NA (PORCINE) 5,000 UNITS/ML 1ML VIAL SQ SCH ×3 (06:05→22:11)
[2017-06-03 09:00] LABS: HEMATOCRIT 38.2 % (35.4-49); HEMOGLOBIN 13.3 GM/dL (11.7-16.9); MCH 30.5 pg (25.7-33.7); MCHC 34.7 g/dl (32.0-35.9); MEAN CELL VOLUME 87.9 fl (80-96); MEAN PLT VOLUME 7.4 fl (7.5-11.1); PLATELET COUNT 220 K/MM3 (134-434); RBC 4.35 M/mm3 (4.00-5.60); WHITE BLOOD COUNT 5.4 K/mm3 (4.0-10.0)
[2017-06-03] MEDS: PANTOPRAZOLE SODIUM 40 MG VIAL IVPUSH SCH (09:25)
--- NOTE | 2017-06-03 09:35 | PN ---
Progress Note (short form) - Note Progress Note: Attending Surgeon POD #4 No c/o; passed flatus VSS AF abdomen-soft and non tender; incision c/d/i labs noted pathology pending IMP: doing well PLAN: Advance diet; OOB; continue present tx. Samy Long MD FACS
[2017-06-03 09:40] LABS: CHLORIDE 106 mmol/L (98-107); POTASSIUM 3.2 mmol/L (3.5-5.1); SODIUM 139 mmol/L (136-145)
[2017-06-03 09:53] LABS: ANION GAP 5 (8-16); BLOOD UREA NITROGEN 4 mg/dL (7-18); CALCIUM 7.8 mg/dL (8.5-10.1); CO2 28 mmol/L (21-32); CREATININE 0.9 mg/dL (0.7-1.3); GLUCOSE,RANDOM 116 mg/dL (74-106); MAGNESIUM 2.1 mg/dL (1.8-2.4); PHOSPHOROUS 2.7 mg/dL (2.5-4.9)
--- NOTE | 2017-06-03 15:10 | PN ---
<Tim Camejo - Last Filed: 06/03/17 15:01> Physical Exam: SUBJECTIVE: Patient seen and examined at bedside. Flatus overnight. Patient doing well, in good spirits, ambulating. No new complaints. OBJECTIVE: Vital Signs Period Temp Pulse Resp BP Sys/Park Pulse Ox Last 24 Hr 98.5 F-100.3 F 75-100 18-20 110-140/66-89 96-96 GENERAL: The patient is awake, alert, and fully oriented, in no acute distress. NECK: Trachea midline, full range of motion, supple. LUNGS: Breath sounds equal, clear to auscultation bilaterally, no wheezes, no crackles, no accessory muscle use. HEART: Regular rate and rhythm, S1, S2 without murmur, rub or gallop. ABDOMEN: Soft, nontender, nondistended, normoactive bowel sounds, no guarding, no rebound, no hepatosplenomegaly, no masses. EXTREMITIES: 2+ pulses, warm, well-perfused, no edema. NEUROLOGICAL: Cranial nerves II through X grossly intact. Normal speech, gait not observed SKIN: Warm, dry, normal turgor, no rashes or lesions noted Laboratory Results - last 24 hr 06/03/17 06/03/17 07:45 07:45 WBC 5.4 RBC 4.35 Hgb 13.3 Hct 38.2 MCV 87.9 MCH 30.5 MCHC 34.7 RDW 13.0 Plt Count 220 MPV 7.4 L Sodium 139 Potassium 3.2 L Chloride 106 Carbon Dioxide 28 Anion Gap 5 L BUN 4 L D Creatinine 0.9 Random Glucose 116 H Calcium 7.8 L Phosphorus 2.7 Magnesium 2.1 Active Medications Generic Name Dose Route Start Last Admin Trade Name Freq PRN Reason Stop Dose Admin Heparin Sodium (Porcine) 5,000 unit 05/31/17 22:00 06/03/17 13:17 Heparin - SQ Not Given TID [facility] Dextrose/Sodium Chloride 1,000 mls @ 125 mls/hr 06/01/17 11:00 06/03/17 10:41 D5-1/2ns - IV Not Given ASDIR [facility] Ketorolac Tromethamine 30 mg 06/01/17 08:20 06/03/17 01:02 Toradol Injection - IVPUSH 06/06/17 09:59 30 mg Q8H-IV PRN Administration PAIN LEVEL 1-5 Morphine Sulfate 4 mg 06/02/17 10:24 Morphine Sulfate IVPB Q4H PRN PAIN LEVEL 6-10 Ondansetron HCl 4 mg 05/31/17 18:32 Zofran Injection IVPUSH Q6H PRN NAUSEA Pantoprazole Sodium 40 mg 06/01/17 10:00 06/03/17 09:25 Protonix Iv IVPUSH 40 mg DAILY DARRIN Administration Promethazine HCl 12.5 mg 05/31/17 18:32 Phenergan Injection - IVPB Q6H PRN NAUSEA AND/OR VOMITING ASSESSMENT/PLAN: The patient is a 41 yo m w/ no PMH who is being admitted for management of SBO 2 /2 intususception #POD 3 s/p ex lap w/ bowel resection 2/2 intususception -Pt OOB and ambulating -Patient passed flatus overnight, advancing diet today -phenergan PRN nausea -Pain control -IV toradol 30mg Q8H -morphine 4mg PRN #FEN -D5 1/2 NS @ 100 -hypokalemia, repleted -full liquid diet #prophy -Heparin 5ku TID #Dispo -admit to med-surg. -DC planning for tomorrow if surgery in agreement Visit type - Emergency Visit Emergency Visit: Yes ED Registration Date: 05/30/17 Care time: The patient presented to the Emergency Department on the above date and was hospitalized for further evaluation of their emergent condition. - New Patient This patient is new to me today: No - Critical Care Critical Care patient: No <Armida Yeh - Last Filed: 06/03/17 18:49> Physical Exam: Patient is able to pass gas, diet is advanced as per surgery if patient tolerates it , will advance and discharge patient home in am as per surgery.
[2017-06-03] MEDS: POTASSIUM CHLORIDE TABS 20 MEQ TABLET.ER (FP) PO SCH (16:06)
[2017-06-04] MEDS: DEXTROSE 5%-0.45% SALINE 1,000 ML IV SCH (05:53)
[2017-06-04] MEDS: HEPARIN NA (PORCINE) 5,000 UNITS/ML 1ML VIAL SQ SCH (05:58)
[2017-06-04 08:32] LABS: ANION GAP 9 (8-16); BLOOD UREA NITROGEN 3 mg/dL (7-18); CALCIUM 8.3 mg/dL (8.5-10.1); CHLORIDE 105 mmol/L (98-107); CO2 28 mmol/L (21-32); GLUCOSE,RANDOM 104 mg/dL (74-106); POTASSIUM 3.6 mmol/L (3.5-5.1); SODIUM 142 mmol/L (136-145)
[2017-06-04] MEDS: POTASSIUM CHLORIDE TABS 20 MEQ TABLET.ER (FP) PO SCH (09:13)
[2017-06-04] MEDS: PANTOPRAZOLE SODIUM 40 MG VIAL IVPUSH SCH (09:14)
--- NOTE | 2017-06-04 09:42 | PATH ---
Surgical Pathology Report Patient Name: MILAN SPAIN [facility]. Rec. #: [id number] /Age/Gender: 1975 (Age: 41) / M Account: [id number] Location: [address] [place] [address]/[facility] Taken: 05/31/2017 Received: 06/01/2017 Reported: 06/04/2017 Physicians: MD Landon Alexis M.D. 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 SURGICAL MARGINS ARE NEGATIVE. SEE COMMENT. Comment: Histologic sections show the neoplasm is comprised of myofibroblastic and fibroblastic spindle cells admixed with inflammatory infiltrate of lymphocytes, plasma cells, eosinophils, and histiocytes in a background of abundant blood vessels infiltrating the full thickness of the small bowel wall. No cytologic atypia, necrosis or hemorrhage identified. Immunohistochemical stains performed at [place], [place] ([id number]) and interpreted at [facility] show the neoplasm is positive for vimentin and SMA, while negative for AE1/3, ALK-1, Calponin-B, CD117, S100 and desmin. CD34 shows patchy background staining and highlights blood vessels. 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 Case seen interdepartmentally. Office of Dr. Long informed that significant findings will be faxed. Electronically Signed Dory Gabriel M.D. Gross Description Received in formalin labeled "portion of small bowel," is a 9 cm in length portion of small bowel with 2 stapled mucosal margins and no attached fat. The serosa is red brown and dusky. There is a focal stricture present in the central portion of the specimen. The mucosa displays a 3.0 x 2.7 x 2.4 cm pink-winchester polypoid mass. The mass infiltrates through the muscularis and to the serosa. The cut surface of the mass is homogeneous winchester and smooth. The mass is 2.2 cm from the closest mucosal margin. The remaining mucosa is winchester-green with focally flattened folds. Exercise Instruct sections are submitted in 7 cassettes as follows: 1-mucosal margin closest to mass; 2-opposing mucosal margin; 3-4-one full face bisected section of mass; 5-additional mass with serosa; 6-mass with surrounding normal mucosa; 7-additional uninvolved mucosa. DL06/01/2017 saudi06/01/2017
--- NOTE | 2017-06-04 10:21 | PN ---
Teaching Attending Note Name of Resident: Malina Peguero ATTENDING PHYSICIAN STATEMENT I saw and evaluated the patient. I reviewed the resident's note and discussed the case with the resident. I agree with the resident's findings and plan as documented. SUBJECTIVE: patient is feeling well with no acute distress, able to pass gas. No fever or chills, no shortness of breath.` OBJECTIVE: Vital Signs Temperature 98.8 F 06/04/17 05:30 Pulse Rate 78 06/04/17 05:30 Respiratory Rate 20 06/03/17 22:00 Blood Pressure 118/62 06/04/17 05:30 O2 Sat by Pulse Oximetry (%) 97 06/03/17 22:00 CBCD WBC 5.4 K/mm3 (4.0-10.0) 06/03/17 07:45 RBC 4.35 M/mm3 (4.00-5.60) 06/03/17 07:45 Hgb 13.3 GM/dL (11.7-16.9) 06/03/17 07:45 Hct 38.2 % (35.4-49) 06/03/17 07:45 MCV 87.9 fl (80-96) 06/03/17 07:45 MCHC 34.7 g/dl (32.0-35.9) 06/03/17 07:45 RDW 13.0 % (11.9-15.9) 06/03/17 07:45 Plt Count 220 K/MM3 (134-434) 06/03/17 07:45 MPV 7.4 fl (7.5-11.1) L 06/03/17 07:45 CMP Sodium 142 mmol/L (136-145) 06/04/17 07:44 Potassium 3.6 mmol/L (3.5-5.1) 06/04/17 07:44 Chloride 105 mmol/L (98-107) 06/04/17 07:44 Carbon Dioxide 28 mmol/L (21-32) 06/04/17 07:44 Anion Gap 9 (8-16) 06/04/17 07:44 BUN 3 mg/dL (7-18) L D 06/04/17 07:44 Creatinine 1.0 mg/dL (0.7-1.3) 06/04/17 07:44 Creat Clearance w eGFR > 60 (>60) 06/01/17 07:28 Random Glucose 104 mg/dL (74-106) 06/04/17 07:44 Calcium 8.3 mg/dL (8.5-10.1) L 06/04/17 07:44 Total Bilirubin 1.3 mg/dL (0.2-1.0) H 06/01/17 07:28 AST 16 U/L (15-37) D 06/01/17 07:28 ALT 18 U/L (12-78) 06/01/17 07:28 Alkaline Phosphatase 35 U/L (45-117) L 06/01/17 07:28 Total Protein 5.0 g/dl (6.4-8.2) L 06/01/17 07:28 Albumin 2.9 g/dl (3.4-5.0) L 06/01/17 07:28 Current Medications Generic Name Dose Route Start Last Admin Trade Name Freq PRN Reason Stop Dose Admin Heparin Sodium (Porcine) 5,000 unit 05/31/17 22:00 06/04/17 05:58 Heparin - SQ Not Given TID DARRIN Dextrose/Sodium Chloride 1,000 mls @ 125 mls/hr 06/01/17 11:00 06/04/17 05:53 D5-1/2ns - IV 125 mls/hr ASDIR DARRIN Administration Ketorolac Tromethamine 30 mg 06/01/17 08:20 06/03/17 01:02 Toradol Injection - IVPUSH 06/06/17 09:59 30 mg Q8H-IV PRN Administration PAIN LEVEL 1-5 Morphine Sulfate 4 mg 06/02/17 10:24 Morphine Sulfate IVPB Q4H PRN PAIN LEVEL 6-10 Ondansetron HCl 4 mg 05/31/17 18:32 Zofran Injection IVPUSH Q6H PRN NAUSEA Pantoprazole Sodium 40 mg 06/01/17 10:00 06/04/17 09:14 Protonix Iv IVPUSH 40 mg DAILY DARRIN Administration Potassium Chloride 40 meq 06/03/17 15:15 06/04/17 09:13 K-Dur - PO 40 meq DAILY DARRIN Administration Promethazine HCl 12.5 mg 05/31/17 18:32 Phenergan Injection - IVPB Q6H PRN NAUSEA AND/OR VOMITING Home Medications Medication Instructions Recorded NK [No Known Home Medication] 05/30/17 PE: Confortable, nice gentleman. Chest: CTABL Heart: S1S2 positive, no murmur abdomen: positive for ninfa , no discharge, clean site. positive for BS, positive for ninfa. ext: pulses are positive ASSESSMENT AND PLAN: This patient is a 41 yo m w/ no PMH who is being admitted for management of SBO with intususception #POD 4 s/p ex lap w/ bowel resection ;intususception, patient is on clear liquid diet, will advance the diet, discussed with if tolerates full diet will discharge the patient home, and follow up with the surgeon. Ninfa will be removed by the surgeon in his office.
--- NOTE | 2017-06-04 11:06 | DS ---
Physical Exam: SUBJECTIVE: Patient seen and examined; denies fever, chills, pain, passing flatus, no bm, tolerating diet. OBJECTIVE: Vital Signs Period Temp Pulse Resp BP Sys/Park Pulse Ox Last 24 Hr 98.1 F-99.0 F 74-86 20-20 118-140/62-89 97 PHYSICAL EXAM GENERAL: The patient is awake, alert, and fully oriented, in no acute distress. LUNGS: Breath sounds equal, clear to auscultation bilaterally, no wheezes, no crackles, no accessory muscle use. HEART: Regular rate and rhythm, S1, S2 without murmur, rub or gallop. ABDOMEN: Soft, nontender, nondistended, normoactive bowel sounds, no guarding, no rebound. With staple from surgery in place; no swelling; erythema, drainage; EXTREMITIES: 2+ pulses, warm, well-perfused, no edema. LABS Laboratory Results - last 24 hr 06/04/17 07:44 Sodium 142 Potassium 3.6 Chloride 105 Carbon Dioxide 28 Anion Gap 9 BUN 3 L D Creatinine 1.0 Random Glucose 104 Calcium 8.3 L HOSPITAL COURSE: Date of Admission:05/30/17 Date of Discharge: 06/04/17 This is a 41 year old male with no known past medical history, presents to the emergency room with complaints of nausea, vomiting, abdominal pain, weight loss and found to have a small bowel obstruction/ intussusception. POD # 4 s/p exploratory laparotomy with small bowel resection. Patient tolerating diet, passing flatus, ambulating well. Patient will follow up with primary and surgery for staple removal 7 days after surgery. Patient was also seen by gastroenterology in hospital for diagnosed intussusception will follow up outpatient for further GI evaluation. Pathology report from small intestine biopsy path reviewed and c/w mesenchymal neoplasm, inflammatory myofibroblastic tumor. Heme/once consulted before discharge, and seen in hospital. Heme/onc was consulted. He will follow up as outpatient for further evaluation and treatment. Minutes to complete discharge: 36 Discharge Summary Reason For Visit: PANCREATITIS Current Active Problems Abdominal pain (Acute) Small bowel intussusception (Acute) Small bowel obstruction (Acute) Condition: Fair - Instructions Diet, Activity, Other Instructions: Mr. Gore, you have been treated for a small bowel instruction. You can continue to advance your diet to normal as tolerated. We recommend soft diet for the next day or so. You can take Tylenol for pain, no more that 4 grams per day. We would like you to follow up with Dr. Long for staple removal 7-10 days after surgery was completed. We would also like you to follow up with your processing specialist with in one week as long as your primary physician for hospital follow up and further gastro evaluation. If you do not have a primary, our resident clinic information is attached. As discussed, during surgery, a mass was found in your small intestine. The biopsy report showed a rare tumor (report given). You were seen by hematology/ oncology and we would like you to follow up with them for further evaluation of tumor. Please make appt with in one week. If you experience any worsening of symptoms, including fever, chills, nausea, vomiting, worsening abdominal pain, please return to the emergency room. Referrals: Patricio Mcintyre MD [Staff Physician] - Samy Long MD [Staff Physician] - Urbano Ryder MD [Staff Physician] - Lilia Whitlock MD [Staff Physician] - Disposition: HOME - Home Medications Comprehensive Discharge Medication List: Ambulatory Orders NK [No Known Home Medication] 05/30/17 This patient is new to me today: Yes Date on this admission: 06/04/17 Emergency Visit: Yes ED Registration Date: 05/30/17 Care time: The patient presented to the Emergency Department on the above date and was hospitalized for further evaluation of their emergent condition. Critical Care patient: No - Discharge Referral Referred to [facility] No
--- NOTE | 2017-06-04 11:22 | PN ---
Progress Note (short form) - Note Progress Note: Attending Surgeon POD#5 No c/o; passing flatus; no BM VSS AF abdo-soft; flat and non tender; incision c/d/i path reviewed and c/w mesenchymal neoplasm, inflammatory myofibroblastic tumor IMP:doing well PLAN: Advance diet and d/c to office f/u. Samy Long MD FACS
[2017-06-04 15:07] VITALS: BP 130/80; PULSE 79; TEMP 98.6
== END 2017-06-04 16:48 | disposition home or self-care (01) | DRG 330 ==
LOC: JER 23:30 → JERBED 05-30 05:22 → OBSVTOIN 05-30 05:53 → J6S 05-30 15:11
PROVIDERS: ADMIT Internal Medicine; ATTEND Internal Medicine
PROC: 0DBB0ZZ Excision of Ileum, Open Approach (ICD-10-PCS; principal; 2017-05-30)
PROC: 0WJP0ZZ Inspection of Gastrointestinal Tract, Open Approach (ICD-10-PCS; 2017-05-30)
DX: D13.39 Benign neoplasm of other parts of small intestine (principal); K56.1 Intussusception; E86.9 Volume depletion, unspecified; E16.2 Hypoglycemia, unspecified; E87.6 Hypokalemia
CPT/HCPCS: 36415; 74174-TC; 76705-TC; 80048; 80053; 80076; 81003; 81015; 83605; 83690; 83735; 84100; 85025; 85027; 85610; 85730; 86850; 86900; 86901; 88309-TC; 93005; 93010; 94760; 97116-GP; 97161-GP; 99285-25; G0378; J0131; J1170; J1644; J7030